=== PATIENT | female | born 1995 | race Caucasian/White ===

== ENCOUNTER 2024-04-07 15:24 | Emergency (ER) | payer OTHER, SELFPAY ==
[2024-04-07 15:32] VITALS: BP 102/67; PULSE 89; RESP 18; TEMP 37.2; O2SAT 97; BMI 25.8
[2024-04-07 15:35] VITALS: O2SAT 97
--- NOTE | 2024-04-07 15:44 | W.ED.COVID ---
HPI - COVID General: Chief Complaint: COVID symptoms Stated Complaint: vomiting Time Seen by Provider: 04/07/24 15:41 History of Present Illness: 28-year-old female with past medical history of Yue-Danlos syndrome, rheumatoid arthritis is presenting with 1 day of multiple episodes of nonbloody nonbilious vomiting diarrhea, body aches, chills, generalized weakness and fatigue and abdominal cramping. She is here with her boyfriend who also has similar symptoms. She denies any nasal congestion sore throat cough chest pain or shortness of breath. COVID 19 common symptoms: positive fatigue, body aches, nausea, vomiting and diarrhea; negative fever(s), productive cough, dyspnea, headache(s) or throat pain COVID 19 other sytmptoms: negative chest pain COVID Results: Coronavirus (PCR) Negative (Negative) 04/07/24 14:25 Related Data Home Medications Medication Instructions Recorded Confirmed astaxanthin 12 mg capsule 12 mg PO DAILY Krill oil 04/07/24 04/07/24 celecoxib 100 mg capsule 100 - 200 mg PO BID PRN arthritis 04/07/24 04/07/24 pain cholecalciferol (vitamin D3) 50 50 mcg PO DAILY 04/07/24 04/07/24 mcg (2,000 unit) tablet (Vitamin D3) clindamycin phosphate 1 % topical 1 applic topical BID PRN skin 04/07/24 04/07/24 solution irritation to back and chest epinephrine 0.3 mg/0.3 mL See Rx Instructions .Route .COMPLEX 04/07/24 04/07/24 injection, auto-injector famotidine 40 mg tablet 40 mg PO BID 04/07/24 04/07/24 ferrous sulfate 325 mg (65 mg 325 mg PO DAILY 04/07/24 04/07/24 iron) tablet,delayed release omega 3-ljl-yyh-fish oil 1,000 mg 2 cap PO DAILY 04/07/24 04/07/24 (120 mg-180 mg) capsule (Fish Oil) saffron extract 176.5 mg tablet 176.5 mg PO DAILY 04/07/24 04/07/24 turmeric root extract 500 mg tablet 2,000 mg PO DAILY 04/07/24 04/07/24 valacyclovir 500 mg tablet 500 mg PO DAILY PRN viral episodes 04/07/24 04/07/24 Previous Rx's Medication Instructions Recorded dicyclomine 20 mg tablet 20 mg PO QID PRN abdominal pain 04/07/24 #20 tabs ondansetron 4 mg disintegrating 4 mg PO TID PRN nausea and 04/07/24 tablet vomiting 4 days #14 tabs Allergies Allergy/AdvReac Type Severity Reaction Status Date / Time No Known Allergies Allergy Verified 04/07/24 15:35 Review of Systems Const: Reports: body aches and fatigue; Denies: fever(s) Eyes: Denies: change in vision or blurry vision ENMT: Denies: throat pain Card: Denies: chest pain, palpitations or edema Resp: Denies: dyspnea or productive cough GI: Reports: abdominal pain, nausea, vomiting and diarrhea : Denies: flank pain Musc: Denies: back pain Skin/Breast: Denies: rash Neuro: Denies: headache(s), numbness in extremities or weakness in extremities Jaime/Lymph: Denies: easy bruising or easy bleeding All/Imm: Denies: urticaria Physical Exam Narrative: EXAM NARRATIVE: Const: no acute distress, cooperative, well appearing HENMT: normocephalic, atraumatic, normal facial exam, posterior oropharynx normal w/ no tonsillar erythema or exudates Eye: Equal, round and reactive pupils present and EOMs intact bilaterally Neck/C-Spine: trachea midline, no stridor, no midline c spine tenderness , no paraspinal neck muscle tenderness Chest: no rib or chest wall tenderness Resp: normal respiratory effort, No retractions, No use of accessory muscles and clear to auscultation bilaterally Cardio: COMMON NORMALS: regular rate and regular rhythm RATE: regular rate RHYTHM: regular rhythm GI: Generalized abdominal tenderness without rebound or guarding otherwise normal to inspection, nondistended, normoactive bowel sounds present Extremity: COMMON NORMALS: no pedal edema Neuro: GCS 15, AO x 4, normal speech, CN intact, normal motor exam, normal sensory exam, no ataxia Psych: cooperative, appropriate mood and affect Skin: no rashes or lesions Course Vital Signs: Vital signs: Vital Signs Temperature 98.9 F 04/07/24 15:32 Pulse Rate 89 04/07/24 15:32 Respiratory Rate 18 04/07/24 15:32 Blood Pressure 102/67 04/07/24 15:32 Pulse Oximetry 97 04/07/24 15:32 Oxygen Delivery Me thod Room Air 04/07/24 15:32 MDM - COVID Medical Decision Making Labs without significant abnormalities including no leukocytosis, no electro abnormalities Patient does feel markedly improved nausea has resolved. Vital signs are stable, labs without significant normalities. Patient felt to be stable for discharge and outpatient follow-up. Return precautions provided. Lab Data 04/07/24 16:13 04/07/24 16:13 Laboratory Results WBC 9.37 10^3/uL (3.29-11.43) 04/07/24 16:13 RBC 4.39 10^6/uL (3.85-5.65) 04/07/24 16:13 Hgb 13.40 g/dL (11.27-16.99) 04/07/24 16:13 Hct 40.1 % (36-47) 04/07/24 16:13 MCV 91.3 fl (85-98) 04/07/24 16:13 MCH 30.5 pg (27-33) 04/07/24 16:13 MCHC 33.4 g/dL (30-55) 04/07/24 16:13 RDW 12.0 % (12.1-15.1) L 04/07/24 16:13 Plt Count 198 10^3/cmm (157-399) 04/07/24 16:13 MPV 9.1 fL (7.4-10.4) 04/07/24 16:13 Neut % (Auto) 92.5 % 04/07/24 16:13 Lymph % (Auto) 3.5 % 04/07/24 16:13 Terry % (Auto) 3.6 % 04/07/24 16:13 Eos % (Auto) 0.0 % 04/07/24 16:13 Baso % (Auto) 0.2 % 04/07/24 16:13 Neut # (Auto) 8.66 10^3/uL (1.8-7.7) H 04/07/24 16:13 Lymph # (Auto) 0.3 10^3/uL (0.8-4.8) L 04/07/24 16:13 Terry # (Auto) 0.3 10^3/uL (0.2-0.9) 04/07/24 16:13 Eos # (Auto) 0.0 10^3/uL (0.0-0.8) 04/07/24 16:13 Baso # (Auto) 0.0 10^3/uL (0.0-0.1) 04/07/24 16:13 Nucleated RBC % (auto) 0 % 04/07/24 16:13 Nucleated RBCs # 0.0 /100WBC 04/07/24 16:13 Sodium 137 mmol/L (136-145) 04/07/24 16:13 Potassium 4.3 mmol/L (3.5-5.1) 04/07/24 16:13 Chloride 103 mmol/L (98-107) 04/07/24 16:13 Carbon Dioxide 23 mmol/L (22-29) 04/07/24 16:13 Anion Gap 15.3 (5-19) 04/07/24 16:13 BUN 18 mg/dL (6-20) 04/07/24 16:13 Creatinine 0.7 mg/dL (0.5-0.9) 04/07/24 16:13 GFR Calculation 99.6 mL/min (90-130) 04/07/24 16:13 Glucose 109 mg/dL (65-115) 04/07/24 16:13 Calculated Osmolality 286 mOsm/kg (285-295) 04/07/24 16:13 Calcium 8.7 mg/dL (8.5-10.5) 04/07/24 16:13 Total Bilirubin 0.7 mg/dL (0.15-1.2) 04/07/24 16:13 AST 18 U/L (0-32) 04/07/24 16:13 ALT 12 U/L (0-33) 04/07/24 16:13 Alkaline Phosphatase 56 U/L (35-105) 04/07/24 16:13 Total Protein 6.7 g/dL (6.6-8.7) 04/07/24 16:13 Albumin 4.1 g/dL (3.5-5.2) 04/07/24 16:13 Globulin 2.6 g/dL (1.3-4.6) 04/07/24 16:13 Lipase 19 U/L (13-60) 04/07/24 16:13 HCG, Qual Negative (Negative) 04/07/24 16:13 Urine Color Yellow (Yellow) 04/07/24 16:32 Urine Appearance Clear (CLEAR) 04/07/24 16:32 Urine pH 6.0 (5-7) 04/07/24 16:32 Ur Specific [place] 1.025 (1.005-1.030) 04/07/24 16:32 Urine Protein Negative (Negative) 04/07/24 16:32 Urine Glucose (UA) Negative (Normal) 04/07/24 16:32 Urine Ketones Negative (Negative) 04/07/24 16:32 Urine Blood Negative (Negative) 04/07/24 16:32 Urine Nitrate Negative (Negative) 04/07/24 16:32 Urine Bilirubin Negative (Negative) 04/07/24 16:32 Urine Urobilinogen 1.0 mg/dL (Negative) 04/07/24 16:32 Ur Leukocyte Esterase Negative (Negative) 04/07/24 16:32 Urine RBC 0-2 /hpf (0-2) 04/07/24 16:32 Urine WBC 6-10 /hpf (0-5) 04/07/24 16:32 Ur Squamous Epith Cells 6-10 /hpf (0-5) 04/07/24 16:32 Amorphous Sediment Not Reportable 04/07/24 16:32 Urine Bacteria Trace /hpf (NONE) 04/07/24 16:32 Hyaline Casts 0.81 /lpf 04/07/24 16:32 Coronavirus (PCR) Negative (Negative) 04/07/24 14:25 Influenza A (PCR) Negative (Negative) 04/07/24 14:25 Influenza Type B (PCR) Negative (Negative) 04/07/24 14:25 RSV (PCR) Negative (Negative) 04/07/24 14:25 Coronavirus (PCR) Negative (Negative) 04/07/24 14:25 No radiology studies performed this visit Discharge Plan Discharge Patient Disposition: Home Clinical Impression: Gastroenteritis Condition: Stable Prescriptions: New ondansetron 4 mg tablet,disintegrating 4 mg PO TID PRN (Reason: nausea and vomiting) 4 Days Qty: 14 0RF dicyclomine 20 mg tablet 20 mg PO QID PRN (Reason: abdominal pain) Qty: 20 0RF No Action famotidine 40 mg tablet 40 mg PO BID valacyclovir 500 mg tablet 500 mg PO DAILY PRN (Reason: viral episodes) epinephrine 0.3 mg/0.3 mL auto-injector See Rx Instructions .ROUTE .COMPLEX Rx Instructions: ADMINISTER 0.3 MG IN THE MUSCLE 1 TIME NEEDED FOR ANAPHYLAXIS. ferrous sulfate 325 mg (65 mg iron) Tablet,Delayed Release (Dr/Ec) 325 mg PO DAILY celecoxib 100 mg capsule 100 - 200 mg PO BID PRN (Reason: arthritis pain) clindamycin phosphate 1 % solution 1 applic TOPICAL BID PRN (Reason: skin irritation to back and chest) cholecalciferol (vitamin D3) [Vitamin D3] 50 mcg (2,000 unit) Tablet 50 mcg PO DAILY omega 8-rch-xvr-fish oil [Fish Oil] 1,000 (120-180) mg Capsule 2 cap PO DAILY saffron extract 176.5 mg Tablet 176.5 mg PO DAILY turmeric root extract 500 mg Tablet 2,000 mg PO DAILY astaxanthin 12 mg Capsule 12 mg PO DAILY Discharge Orders: Discharge ED (Routine); Ordered 04/07/24 Ordered By: Edwige Jaime Discharge Diet: Advance as tolerated Patient Instructions: Gastroenteritis (ED) Coding Level of Care Code ED Occupational Health Nursing Director for Wilton Roque
[2024-04-07] MEDS: sodium chloride 0.9% 1,000 ML 999 ML IV ×2 (16:24→17:09)
[2024-04-07] MEDS: ondansetron 2 mg/ML SDV 2 mL 4 MG IVP (16:24)
[2024-04-07] MEDS: ketorolac 30 mg/mL INJ 15 MG IVP (16:24)
[2024-04-07] MEDS: dicyclomine 20 mg Tablet PO (16:24)
[2024-04-07] MEDS: lidocaine 2% viscous 15 ML, aluminum-mag hydrox-simethicon 30 ML, sucralfate oral liq 1 GM PO (16:25)
[2024-04-07 16:29] LABS: Basophils % 0.2 %; Hematocrit 40.1 % (36-47); Lymphocytes # 0.3 10^3/uL (0.8-4.8); Lymphocytes % 3.5 %; Mean Corpuscular HGB Conc 33.4 g/dL (30-55); Mean Corpuscular Hemoglobin 30.5 pg (27-33); Mean Corpuscular Volume 91.3 fl (85-98); Mean Platelet Volume 9.1 fL (7.4-10.4); Monocytes # 0.3 10^3/uL (0.2-0.9); Monocytes % 3.6 %; Neutrophils # 8.66 10^3/uL (1.8-7.7); Neutrophils % 92.5 %; Nucleated Red Blood Cells % 0 %; Platelet Count 198 10^3/cmm (157-399); Red Blood Count 4.39 10^6/uL (3.85-5.65); White Blood Count 9.37 10^3/uL (3.29-11.43)
[2024-04-07 16:45] LABS: HCG, Serum Qual Negative (Negative)
[2024-04-07 16:48] LABS: Alanine Aminotransferase 12 U/L (0-33); Albumin Level 4.1 g/dL (3.5-5.2); Alkaline Phosphatase 56 U/L (35-105); Anion Gap 15.3 (5-19); Aspartate Amino Transferase 18 U/L (0-32); Blood Urea Nitrogen 18 mg/dL (6-20); Calcium 8.7 mg/dL (8.5-10.5); Carbon Dioxide 23 mmol/L (22-29); Chloride 103 mmol/L (98-107); Creatinine Clr Calc Pharmacy 126.3614; Globulin 2.6 g/dL (1.3-4.6); Glomerular Filtration Rate 99.6 mL/min (90-130); Glucose 109 mg/dL (65-115); Lipase 19 U/L (13-60); Osmolality Calculated 286 mOsm/kg (285-295); Potassium 4.3 mmol/L (3.5-5.1); Sodium 137 mmol/L (136-145); Total Bilirubin 0.7 mg/dL (0.15-1.2); Total Protein 6.7 g/dL (6.6-8.7)
[2024-04-07 16:56] LABS: Bilirubin Urine Negative (Negative); Blood Urine Negative (Negative); Glucose Urine UA Negative (Normal); Ketones Urine Negative (Negative); Leukocyte Esterase Urine Negative (Negative); Nitrate Urine Negative (Negative); Protein Urine Negative (Negative); Specific Gravity, Urine 1.025 (1.005-1.030); Urine Appearance Clear (CLEAR); Urine Color Yellow (Yellow)
[2024-04-07 17:01] LABS: Add Urine Microscopic? YES; Bacteria Urine Trace /hpf; Hyaline Casts Urine 0.81 /lpf; RBC Urine 0-2 /hpf (0-2)
[2024-04-07 17:34] LABS: Covid PCR NEGATIVE (Negative); Influenza A NEGATIVE (Negative); Influenza B NEGATIVE (Negative); Respiratory Syncytial Virus Ce NEGATIVE (Negative)
[2024-04-07 17:48] VITALS: BP 95/46; PULSE 97; O2SAT 98
== END 2024-04-07 17:49 | disposition home or self-care (01) ==
PROVIDERS: Emergency Medicine; Emergency Provider Emergency Medicine
DX: K52.9 Noninfective gastroenteritis and colitis, unspecified (principal); Z11.52 Encounter for screening for COVID-19
CPT/HCPCS: 36415; 80053; 81001; 83690; 84703; 85025; 87637; 96361; 96374; 96375; 99284; J1885; J2405; J7030